=== PATIENT | female | born 1995 | race Caucasian/White ===

== ENCOUNTER 2021-05-16 13:52 | Emergency (ER) | payer MEDICAID ==
[~2021-05-16] VITALS: Ht 160 cm; Wt 81.6 kg
[2021-05-16 14:07] VITALS: BP_SYST 130
--- NOTE | 2021-05-16 14:14 | NUR ---
SENT TO TRIAGE
--- NOTE | 2021-05-16 14:21 | NUR ---
AMBULATED TO BED 5
--- NOTE | 2021-05-16 14:23 | NUR ---
DAHLIA Paige at bedside examining patient.
--- NOTE | 2021-05-16 14:25 | NUR ---
Pt came in c/o of pain to right shoulder since last Monday, rates pain /, has minimal ROM
[2021-05-16] MEDS ORDERED: CYCL10TA24 PO ×2 (14:40→14:44)
[2021-05-16] MEDS ORDERED: IBUP-1969 PO ×2 (14:40→14:44)
[2021-05-16] MEDS ORDERED: KETOROLAC TROMETHAMINE 60 MG/2 ML VIAL IM ONE (14:45)
[2021-05-16 15:31] VITALS: BP_SYST 137
--- NOTE | 2021-05-16 15:31 | NUR ---
Patient given written and verbal discharge instructions and verbalizes understanding. Dr. Paige discussed with patient the results and treatment provided. Patient in stable condition. ID arm band removed. Rx of Flexeril and Ibuprofen given. Patient educated on pain management and to follow up with PMD. Pain Scale 6. Opportunity for questions provided and answered. Medication side effect fact sheet provided.
== END 2021-05-16 15:31 | disposition home or self-care (01) ==
LOC: SED 13:52
DX: S46.911A Strain of unspecified muscle, fascia and tendon at shoulder and upper arm level, right arm, initial encounter (principal); S29.012A Strain of muscle and tendon of back wall of thorax, initial encounter; Z79.899 Other long term (current) drug therapy; X50.0XXA Overexertion from strenuous movement or load, initial encounter; Y93.89 Activity, other specified; Y92.89 Other specified places as the place of occurrence of the external cause; Y99.8 Other external cause status
CPT/HCPCS: 73020; 96372; 99283; J1885